=== PATIENT | female | born 1955 | race Caucasian/White ===

== ENCOUNTER → 2016-09-08 | Outpatient (REF) | payer OTHER | LOC: M LAB REF 14:53 | PROVIDERS: ATTEND Physician Assistant Medical | DX: N39.0 Urinary tract infection, site not specified (principal) ==

== ENCOUNTER → 2017-05-13 | Outpatient (REF) | payer OTHER | LOC: M LAB REF 11:34 | PROVIDERS: ATTEND Physician Assistant | DX: R30.0 Dysuria (principal) ==

== ENCOUNTER → 2018-04-21 | Outpatient (REF) | payer OTHER ==
[2018-04-21 14:25] LABS: BASO % 0.7 % (0.0-1.0); EOS # 0.1 10^3/uL (0.0-0.50); EOS % 1.4 % (0.0-3.0); HEMATOCRIT 46.4 % (36.0-47.0); IMMATURE GRANULOCYTE % 0.5 % (0-3.0); LYMPH # 0.8 10^3/uL (1.5-4.5); LYMPH % 13.7 % (24.0-44.0); MEAN CORPUSCULAR HEMOGLOBIN 27.9 pg (27.0-33.0); MEAN CORPUSCULAR HGB CONC 32.3 g/dl (32.0-36.5); MEAN CORPUSCULAR VOLUME 86.4 fl (80.0-96.0); MONO # 0.5 10^3/uL (0.0-0.8); MONO % 7.7 % (0.0-5.0); NEUTROPHILS # 4.4 10^3/uL (1.8-7.7); PLATELET COUNT, AUTOMATED 208 10^3/uL (150-450); RED BLOOD COUNT 5.37 10^6/uL (4.00-5.40); RED CELL DISTRIBUTION WIDTH 14.2 % (11.5-14.5); WHITE BLOOD COUNT 5.8 10^3/uL (4.0-10.0)
[2018-04-21 14:26] LABS: RHEUMATOID FACTOR QUANT < 10.0 IU/ML (<15.0)
[2018-04-21 14:26] LABS: C REACTIVE PROTEIN QUANTITATIV 0.74 MG/DL (0.00-0.30)
[2018-04-21 15:21] LABS: ERYTHROCYTE SEDIMENTATION RATE 3 mm/hr (0-30)
[2018-04-22 14:16] LABS: ANTINUCLEAR ANTIBODIES DIRECT Negative (Negative)
== END ==
LOC: M LABDRAW1 11:08
DX: M25.552 Pain in left hip (principal)
CPT/HCPCS: 86140

== ENCOUNTER 2019-04-11 18:23 | Emergency (ER) | payer OTHER ==
[~2019-04-11] VITALS: Ht 167.6 cm; Wt 78.2 kg
[2019-04-11] MEDS ORDERED: GABA-845 PO (18:32)
[2019-04-11] MEDS ORDERED: VASO20TA11 PO (18:33)
[2019-04-11] MEDS ORDERED: ESTR2TAB4 PO (18:33)
[2019-04-11 19:07] LABS: BASO # 0.1 10^3/uL (0.0-0.2); BASO % 0.9 % (0.0-1.0); EOS # 0.1 10^3/uL (0.0-0.5); EOS % 2.2 % (0.0-3.0); HEMATOCRIT 45.5 % (36.0-47.0); HEMOGLOBIN 14.8 g/dl (12.0-15.5); LYMPH # 1.1 10^3/uL (1.5-5.0); LYMPH % 18.3 % (24.0-44.0); MEAN CORPUSCULAR HEMOGLOBIN 28.2 pg (27.0-33.0); MEAN CORPUSCULAR HGB CONC 32.5 g/dl (32.0-36.5); MEAN CORPUSCULAR VOLUME 86.8 fl (80.0-96.0); MONO # 0.5 10^3/uL (0.0-0.8); MONO % 8.3 % (0.0-5.0); NEUTROPHILS # 4.1 10^3/uL (1.5-8.5); PLATELET COUNT, AUTOMATED 196 10^3/uL (150-450); RED BLOOD COUNT 5.24 10^6/uL (4.00-5.40); WHITE BLOOD COUNT 5.8 10^3/uL (4.0-10.0)
[2019-04-11 19:34] LABS: ALBUMIN 3.9 GM/DL (3.2-5.2); ALT/SGPT 22 U/L (12-78); BILIRUBIN,DIRECT 0.1 MG/DL (0.0-0.2); BILIRUBIN,TOTAL 0.5 MG/DL (0.2-1.0); BLOOD UREA NITROGEN 10 MG/DL (7-18); CALCIUM LEVEL 9.4 MG/DL (8.8-10.2); CARBON DIOXIDE LEVEL 31 MEQ/L (21-32); CHLORIDE LEVEL 105 MEQ/L (98-107); CK-MB VALUE MASS < 1.0 NG/ML (<3.6); CPK CREATINE PHOSPHOKINASE 59 U/L (26-192); CREATININE FOR GFR 0.66 MG/DL (0.55-1.30); GLOMERULAR FILTRATION RATE > 60.0 (>45); GLUCOSE, FASTING 87 MG/DL (70-100); LIPASE 117 U/L (73-393); MB/CK RELATIVE INDEX 1.69 (< OR =4); POTASSIUM SERUM 3.8 MEQ/L (3.5-5.1); SODIUM LEVEL 141 MEQ/L (136-145); TOTAL PROTEIN 7.3 GM/DL (6.4-8.2); TROPONIN I < 0.02 NG/ML (< 0.10)
[2019-04-11] MEDS ORDERED: NITROGLYCERIN 0.4 MG SUBL TABLET SL STA (20:40)
[2019-04-11] MEDS ORDERED: ASPIRIN 81 MG CHEW TABLET PO ONE (20:45)
[2019-04-11 21:42] LABS: CPK CREATINE PHOSPHOKINASE 56 U/L (26-192); MB/CK RELATIVE INDEX 1.79 (< OR =4); TROPONIN I < 0.02 NG/ML (< 0.10)
[2019-04-11 22:40] VITALS: BP 188/92
[2019-04-11] MEDS ORDERED: AMLO5TAB6 PO (22:42)
[2019-04-11] MEDS ORDERED: amLODIPine 5 MG TAB PO ONE (22:45)
[2019-04-11 22:55] VITALS: BP 145/89
--- NOTE | 2019-04-12 08:18 | REP ---
Clinical: Acute chest pain . Comparison: 02/20/2016 . Findings: The mediastinum and cardiac silhouette are stable and within normal limits for portable technique. The lung goff are clear without acute consolidation, effusion, or pneumothorax. Skeletal structures are intact. Impression: No acute cardiopulmonary process appreciated. Electronically Signed by Edgar Luna MD 04/12/2019 08:10 A
--- NOTE | 2019-04-12 19:28 | ECGEPIP ---
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
--- NOTE | 2019-04-12 21:10 | ECGEPIP ---
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 Order Number: [id number] Reading MD: Marla Licea Measurements Intervals [place] Rate: 76 P: 58 GA: 186 QRS: 29 QRSD: 92 T: 37 QT: 371 QTc: 418 Interpretive Statements SINUS RHYTHM WITH OCCASIONAL SUPRAVENTRICULAR PREMATURE COMPLEXES POSSIBLE LEFT ATRIAL ENLARGEMENT SIMILAR TO 18:36 SAME DAY Electronically Signed on 04-12-2019 21:09:58 EST by Marla Licea
== END 2019-04-11 22:57 | disposition home or self-care (01) ==
LOC: M ED 18:23
DX: I10 Essential (primary) hypertension (principal); R07.89 Other chest pain; R06.02 Shortness of breath; F17.210 Nicotine dependence, cigarettes, uncomplicated; Z88.0 Allergy status to penicillin; Z88.1 Allergy status to other antibiotic agents

== ENCOUNTER → 2021-03-08 | Outpatient (CLI) | payer BC ==
[~2021-03-08] MED LIST: AMLO1TAB24 PO; ESTR2TAB4 PO; GABA-283 PO; VASO20TA11 PO
--- NOTE | 2021-03-08 08:32 | REP ---
INDICATION: Urinary retention COMPARISON: None TECHNIQUE: Real time salazar scale ultrasound examination using curved array transducer. FINDINGS: Right kidney measures 10.5 x 5.9 x 4.8 cm and demonstrates extrarenal pelvis along with mild hydronephrosis. Normal reniform shape and parenchymal echotexture noted without nephrolithiasis or obvious cystic/mass lesion. Left kidney measures 11.1 x 5.3 x 4.3 cm and includes 1.4 cm cortical midpole cyst. Normal reniform shape and parenchymal echotexture noted without hydronephrosis, obvious mass or nephrolithiasis. IMPRESSION: 1. Findings suggest mild right hydronephrosis. 2. 1.4 cm simple left cyst. <Electronically signed by Edgar Luna > 03/08/21 [id number]
--- NOTE | 2021-03-08 08:33 | REP ---
INDICATION: Urinary retention COMPARISON: None TECHNIQUE: Real time B-mode ultrasound examination using curved array transducer. FINDINGS: Bladder is normal in appearance without wall thickening or mass lesion. Bilateral ureteral jets are identified. Prevoid bladder measures 8.1 x 9.8 x 6.5 cm (337 cc). Postvoid bladder measures 4.9 x 5.2 x 3.3 cm (55 cc). Postvoid residual: 16.3 % IMPRESSION: 1. Mildly elevated postvoid residual volume. <Electronically signed by Edgar Luna > 03/08/21 [id number]
== END ==
LOC: M RAD 07:38
PROVIDERS: ATTEND Urology
DX: R33.9 Retention of urine, unspecified (principal)

== ENCOUNTER → 2022-10-14 | Outpatient (CLI) | payer MEDICARE ==
[2022-10-14 20:57] LABS: APPEARANCE, URINE HAZY (CLEAR); BACTERIA, URINE AUTO NEGATIVE (NEGATIVE); BILIRUBIN, URINE AUTO NEGATIVE (NEGATIVE); BLOOD, URINE BLOOD NEGATIVE (NEGATIVE); COLOR, URINE YELLOW (YELLOW); GLUCOSE, URINE (UA) AUTO NEGATIVE (NEGATIVE); KETONE, URINE AUTO TRACE mg/dL (NEGATIVE); LEUKOCYTE ESTERASE, URINE AUTO NEGATIVE (NEGATIVE); NITRITE, URINE AUTO NEGATIVE (NEGATIVE); PROTEIN, URINE AUTO 1+ mg/dL (NEGATIVE); RBC, URINE AUTO 2 /HPF (0-3); SPECIFIC GRAVITY URINE AUTO 1.019 (1.002-1.035); SQUAMOUS EPITHELIAL CELL UR AU 1 /HPF (0-6); UROBILINOGEN, URINE AUTO 0.2 mg/dL (0.0-2.0); WBC, URINE AUTO 1 /HPF (0-3)
== END ==
LOC: M LAB 20:26
PROVIDERS: ATTEND Advanced Practice Midwife
DX: R30.0 Dysuria (principal)

== ENCOUNTER → 2024-06-15 | Outpatient (CLI) | payer MEDICARE ==
[~2024-06-15] MED LIST changes: -GABA-283 PO; +GABA-284 PO
[2024-06-15 03:08] LABS: APPEARANCE, URINE CLOUDY (CLEAR); BACTERIA, URINE AUTO 1+ (NEGATIVE); BILIRUBIN, URINE AUTO NEGATIVE (NEGATIVE); BLOOD, URINE BLOOD 2+ (NEGATIVE); COLOR, URINE YELLOW (YELLOW); GLUCOSE, URINE (UA) AUTO NEGATIVE (NEGATIVE); KETONE, URINE AUTO NEGATIVE (NEGATIVE); LEUKOCYTE ESTERASE, URINE AUTO 3+ (NEGATIVE); MUCUS, URINE SMALL (NEGATIVE); NITRITE, URINE AUTO NEGATIVE (NEGATIVE); PROTEIN, URINE AUTO 2+ mg/dL (NEGATIVE); RBC, URINE AUTO 134 /HPF (0-3); SPECIFIC GRAVITY URINE AUTO 1.024 (1.002-1.035); SQUAMOUS EPITHELIAL CELL UR AU 5 /HPF (0-6); TRANSITIONAL EPITHELIAL AUTO <1 /HPF; UROBILINOGEN, URINE AUTO 0.2 mg/dL (0.0-2.0); WBC, URINE AUTO 75 /HPF (0-3)
== END ==
LOC: M LAB 02:35
PROVIDERS: ATTEND Advanced Practice Midwife
DX: R30.0 Dysuria (principal)

== ENCOUNTER 2024-09-05 15:19 | Emergency (ER) | payer MEDICARE ==
[~2024-09-05] VITALS: Ht 167.6 cm; Wt 90.0 kg
[2024-09-05 15:22] VITALS: BP 139/65; TEMP 97.4; O2SAT 98
[2024-09-05] MEDS ORDERED: ACET-897 PO (15:29)
[2024-09-05] MEDS ORDERED: IBUP-1022 PO (15:29)
[2024-09-05] MEDS ORDERED: ATOR40TA75 (15:29)
[2024-09-05] MEDS ORDERED: PRED10TA2 PO (18:26)
== END 2024-09-05 18:31 | disposition home or self-care (01) ==
LOC: M ED 15:19
DX: M16.12 Unilateral primary osteoarthritis, left hip (principal); I10 Essential (primary) hypertension; Z88.0 Allergy status to penicillin; Z88.1 Allergy status to other antibiotic agents; Z88.8 Allergy status to other drugs, medicaments and biological substances; Z79.1 Long term (current) use of non-steroidal anti-inflammatories (NSAID); Z79.52 Long term (current) use of systemic steroids; Z79.899 Other long term (current) drug therapy

== ENCOUNTER → 2024-09-15 | Outpatient (CLI) | payer MEDICARE ==
[~2024-09-15] MED LIST changes: +ACET-897 PO; +ATOR40TA75; +IBUP-1022 PO; +PRED10TA2 PO
== END ==
LOC: M SOG 10:55
PROVIDERS: ATTEND Orthopaedic Surgery
DX: M25.561 Pain in right knee (principal)

== ENCOUNTER → 2024-09-15 | Outpatient (REF) | payer MEDICARE | LOC: M LAB REF 12:41 | PROVIDERS: ATTEND Orthopaedic Surgery | DX: M25.561 Pain in right knee (principal) ==

== ENCOUNTER → 2024-09-15 | Outpatient (CLI) | payer MEDICARE ==
[2024-09-15 23:28] LABS: HEMATOCRIT 43.3 % (36.0-47.0); HEMOGLOBIN 13.9 g/dl (12.0-15.5); MEAN CORPUSCULAR HEMOGLOBIN 28.2 pg (27.0-33.0); MEAN CORPUSCULAR HGB CONC 32.1 g/dl (32.0-36.5); MEAN CORPUSCULAR VOLUME 87.8 fl (80.0-96.0); PLATELET COUNT, AUTOMATED 230 10^3/uL (150-450); RED BLOOD COUNT 4.93 10^6/uL (4.00-5.40); WHITE BLOOD COUNT 19.8 10^3/uL (4.0-10.0)
[2024-09-15 23:38] LABS: INR 0.87; PROTHROMBIN TIME 12.1 SECONDS (12.5-14.5)
[2024-09-15 23:49] LABS: ALBUMIN 3.8 G/DL (3.2-5.2); ALKALINE PHOSPHATASE 75 U/L (35-104); ALT/SGPT 24 U/L (7.0-40); AST/SGOT 13 U/L (<34); BILIRUBIN,TOTAL 0.3 MG/DL (0.3-1.2); BLOOD UREA NITROGEN 25 MG/DL (9-23); C REACTIVE PROTEIN QUANTITATIV < 0.50 MG/DL (<1.0); CALCIUM LEVEL 9.5 MG/DL (8.3-10.6); CARBON DIOXIDE LEVEL 29 MMOL/L (20-31); CHLORIDE LEVEL 107 MMOL/L (98-107); CREATININE FOR GFR 0.79 MG/DL (0.55-1.30); GLOMERULAR FILTRATION RATE 81.4 (>45); GLUCOSE, FASTING 100 MG/DL (74-106); POTASSIUM SERUM 4.4 MMOL/L (3.5-5.1); SODIUM LEVEL 141 MMOL/L (136-145); TOTAL PROTEIN 6.6 G/DL (5.7-8.2)
[2024-09-15 23:51] LABS: TOTAL 25(OH) VITAMIN D 23.5 NG/ML (20.0-100.0)
[2024-09-15 23:59] LABS: HEMOGLOBIN A1c 5.1 % (4.0-6.0)
[2024-09-16 00:09] LABS: ANISOCYTOSIS 1+; ATYPICAL LYMPH 10 % (0-5); BASOPHILS 1 % (0-1); EOSINOPHILS 1 % (0-3); LYMPHOCYTES 40 % (16-44); MONOCYTES 10 % (0-5); NEUTROPHILS 38 % (28-66); PLATELET ESTIMATE NORMAL (NORMAL)
[2024-09-16 00:28] LABS: ERYTHROCYTE SEDIMENTATION RATE 7 mm/hr (0-30)
== END ==
LOC: M LAB 22:28
PROVIDERS: ATTEND Orthopaedic Surgery
DX: M16.11 Unilateral primary osteoarthritis, right hip (principal); Z79.01 Long term (current) use of anticoagulants

== ENCOUNTER → 2024-11-30 | Outpatient (CLI) | payer MEDICARE ==
[~2024-11-30] MED LIST changes: +OMEP40CA5
== END ==
LOC: M RAD 16:29
PROVIDERS: ATTEND Orthopaedic Surgery
DX: M16.11 Unilateral primary osteoarthritis, right hip (principal)

== ENCOUNTER 2024-12-13 10:17 | Observation (INO) | payer MEDICARE ==
[~2024-12-13] VITALS: Ht 167.6 cm; Wt 81.0 kg
[~2024-12-13 10:17] MED LIST changes: -ATOR40TA75; +ATOR40TA75 PO; +LIDOCAINE 2% 100 MG/5 ML SDV (FOR ANES.) As Ordered ONE; -OMEP40CA5; +OMEP40CA5 PO; +ONDANSETRON 4MG 2ML VIAL As Ordered ONE; +ROCURONIUM BROMIDE 50MG/5ML VIAL As Ordered ONE; +SUGAMMADEX SODIUM 500 MG/5 ML VIAL As Ordered ONE; +dexAMETHasone 4 MG/ML 1 ML VIAL As Ordered ONE; +dexmedeTOMIDine (4 MCG/ML) 200 MCG/50 ML BTL As Ordered ONE
[2024-12-13] MEDS: LR 1,000 ML IV SCH ×2 (10:35→15:15)
[2024-12-13] MEDS ORDERED: MIDAZOLAM INJ 2 MG/2 ML VIAL As Ordered ONE (11:46)
[2024-12-13] MEDS: ceFAZolin SODIUM 2 GM in DEXTROSE 5% (D5W) ADV/MINI-BAG 50 ML IV ONE (12:28)
[2024-12-13] MEDS: TRANEXAMIC ACID 100 MG/ML 10ML VIAL As Ordered ONE (12:51)
[2024-12-13] MEDS ORDERED: ACETAMINOPHEN 1000MG/100ML IV BAG As Ordered ONE (12:54)
[2024-12-13] MEDS: VANCOMYCIN 1000MG/20ML VIAL As Ordered ONE (14:35)
[2024-12-13] MEDS: REK 50ML SYRINGE IA ONE (15:03)
[2024-12-13] MEDS ORDERED: SENNA 8.6 MG TAB PO PRN (15:10)
[2024-12-13] MEDS ORDERED: ONDANSETRON 4MG 2ML VIAL IV PRN (15:10)
[2024-12-13] MEDS ORDERED: HYDROMORPHONE HCL 0.5 MG/0.5 ML SYRINGE IV PRN (15:15)
[2024-12-13] MEDS: ONDANSETRON 4MG 2ML VIAL IV PRN (15:43)
[2024-12-13] MEDS: HYDROMORPHONE HCL 0.5 MG/0.5 ML SYRINGE IV PRN (16:07)
[2024-12-13] MEDS: KETOROLAC 30 MG/ML 1 ML VIAL IV ONE (16:25)
[2024-12-13 17:00] VITALS: BP 101/55; TEMP 96.8; O2SAT 94
[2024-12-13] MEDS ORDERED: GABA-1171 PO (17:26)
[2024-12-13] MEDS ORDERED: HOME MED LIST COMPLETE! XX SCH (17:30)
[2024-12-13 18:00] VITALS: BP 107/60; TEMP 97.1; O2SAT 95
[2024-12-13] MEDS: ACETAMINOPHEN 325 MG TAB PO SCH (18:10)
[2024-12-13 19:00] VITALS: BP 101/55; TEMP 97.3; O2SAT 94
[2024-12-13 19:42] VITALS: BP 99/55; TEMP 97.3; O2SAT 94
[2024-12-13] MEDS: ASPIRIN 81 MG ENTERIC TABLET PO SCH (21:01)
[2024-12-13] MEDS: DOCUSATE SODIUM 100 MG CAPSULE PO SCH (21:01)
[2024-12-13] MEDS: NAPROXEN 250 MG TAB PO SCH (21:02)
[2024-12-13] MEDS: GABAPENTIN 100 MG CAP PO SCH (21:02)
[2024-12-13] MEDS: ceFAZolin SODIUM 2 GM in DEXTROSE 5% (D5W) ADV/MINI-BAG 50 ML IV SCH (21:02)
[2024-12-13 23:59] VITALS: BP 109/67; TEMP 97.3; O2SAT 94
[2024-12-14 03:54] VITALS: BP 97/56; TEMP 97; O2SAT 91
[2024-12-14 07:06] LABS: PLATELET COUNT, AUTOMATED 165 10^3/uL (150-450)
[2024-12-14 07:39] LABS: ALT/SGPT 26.0 U/L (7.0-40); AST/SGOT 54.0 U/L (<34); CALCIUM LEVEL 8.1 MG/DL (8.3-10.6); CARBON DIOXIDE LEVEL 27.0 MMOL/L (20-31); CHLORIDE LEVEL 103.0 MMOL/L (98-107); CREATININE FOR GFR 0.84 MG/DL (0.55-1.30); GLOMERULAR FILTRATION RATE 75.7 (>45); POTASSIUM SERUM 4.4 MMOL/L (3.5-5.1); SODIUM LEVEL 141.0 MMOL/L (136-145)
[2024-12-14] MEDS: ATORVASTATIN 20 MG TAB PO SCH (08:29)
[2024-12-14 08:30] VITALS: BP 122/65
[2024-12-14] MEDS: amLODIPine 5 MG TAB PO SCH (08:30)
[2024-12-14] MEDS: ASCORBIC ACID 500 MG TAB PO SCH (08:30)
[2024-12-14] MEDS: FERROUS SULFATE 325 MG TAB PO SCH (08:30)
[2024-12-14] MEDS: ENALAPRIL MALEATE 10 MG TAB PO SCH (08:39)
[2024-12-14] MEDS ORDERED: CELE100C PO (08:51)
[2024-12-14] MEDS ORDERED: ENDO10TA8 PO (08:51)
[2024-12-14] MEDS ORDERED: ASPI81TAEC PO (08:51)
[2024-12-14] MEDS ORDERED: FERR1TAB8 PO (08:51)
[2024-12-14 12:00] VITALS: BP 98/66; TEMP 97.4; O2SAT 95
[2024-12-14] MEDS ORDERED: CLIN150C17 PO (13:13)
== END 2024-12-14 14:30 | disposition home or self-care (01) ==
LOC: M SDC 10:17 → M RR INP 10:18 → M MS5PR 17:10
PROVIDERS: ADMIT Orthopaedic Surgery; ATTEND Orthopaedic Surgery
DX: M16.11 Unilateral primary osteoarthritis, right hip (principal); I10 Essential (primary) hypertension; K21.9 Gastro-esophageal reflux disease without esophagitis; Z88.1 Allergy status to other antibiotic agents; Z88.0 Allergy status to penicillin; Z91.040 Latex allergy status; Z88.7 Allergy status to serum and vaccine; Z79.899 Other long term (current) drug therapy; Z87.891 Personal history of nicotine dependence
CPT/HCPCS: 27130; 36415; 72170; 80053; 85027; 88300; 96374; 96376; 97116; 97161; 97165; 97530; C1776; G0378; J0131; J0169; J0690; J1100; J1171; J1885; J2250; J2405; J2795; J3010; J3373; S2900

== ENCOUNTER → 2024-12-21 | Outpatient (CLI) | payer MEDICARE ==
[~2024-12-21] MED LIST changes: +ASPI81TAEC PO; +CELE100C PO; +CLIN150C17 PO; +ENDO10TA8 PO; +FERR1TAB8 PO; +GABA-1171 PO; -LIDOCAINE 2% 100 MG/5 ML SDV (FOR ANES.) As Ordered ONE; -ONDANSETRON 4MG 2ML VIAL As Ordered ONE; -ROCURONIUM BROMIDE 50MG/5ML VIAL As Ordered ONE; -SUGAMMADEX SODIUM 500 MG/5 ML VIAL As Ordered ONE; -dexAMETHasone 4 MG/ML 1 ML VIAL As Ordered ONE; -dexmedeTOMIDine (4 MCG/ML) 200 MCG/50 ML BTL As Ordered ONE
== END ==
LOC: M SOG 07:00
PROVIDERS: ATTEND Orthopaedic Surgery
DX: Z47.1 Aftercare following joint replacement surgery (principal); Z96.641 Presence of right artificial hip joint

== ENCOUNTER → 2024-12-21 | Outpatient (CLI) | payer MEDICARE | LOC: M RAD 11:45 | PROVIDERS: ATTEND Orthopaedic Surgery | DX: Z47.1 Aftercare following joint replacement surgery (principal); M79.89 Other specified soft tissue disorders ==

== ENCOUNTER → 2024-12-28 | Outpatient (CLI) | payer MEDICARE ==
[2024-12-28 12:08] LABS: PLATELET COUNT, AUTOMATED 311 10^3/uL (150-450)
[2024-12-28 12:31] LABS: C REACTIVE PROTEIN QUANTITATIV 0.95 MG/DL (<1.0)
[2024-12-28 12:33] LABS: ATYPICAL LYMPH 4 % (0-5); EOSINOPHILS 4 % (0-3); LYMPHOCYTES 31 % (16-44); MONOCYTES 7 % (0-5); NEUTROPHILS 53 % (28-66)
[2024-12-28 12:34] LABS: ALT/SGPT 18.0 U/L (7.0-40); AST/SGOT 20.0 U/L (<34); CALCIUM LEVEL 9.7 MG/DL (8.3-10.6); CARBON DIOXIDE LEVEL 30.0 MMOL/L (20-31); CHLORIDE LEVEL 102.0 MMOL/L (98-107); CREATININE FOR GFR 0.91 MG/DL (0.55-1.30); GLOMERULAR FILTRATION RATE 68.7 (>45); PLATELET ESTIMATE NORMAL (NORMAL); POTASSIUM SERUM 4.7 MMOL/L (3.5-5.1); SODIUM LEVEL 141.0 MMOL/L (136-145)
== END ==
LOC: M LAB 10:26
PROVIDERS: ATTEND Orthopaedic Surgery
DX: Z47.1 Aftercare following joint replacement surgery (principal)

== ENCOUNTER 2025-01-13 09:13 | Outpatient (RCR) | payer MEDICARE ==
[~2025-01-13 09:13] MED LIST changes: -IBUP-1022 PO; +IBUP600T42 PO
== END 2025-01-16 ==
LOC: M PT 09:13
PROVIDERS: ATTEND Orthopaedic Surgery
DX: M16.11 Unilateral primary osteoarthritis, right hip (principal)

== ENCOUNTER → 2025-02-21 | Outpatient (CLI) | payer MEDICARE | LOC: M SOG 07:23 | PROVIDERS: ATTEND Orthopaedic Surgery | DX: Z96.641 Presence of right artificial hip joint (principal); Z47.1 Aftercare following joint replacement surgery ==

== ENCOUNTER → 2025-03-11 | Outpatient (CLI) | payer MEDICARE ==
[2025-03-11 13:08] LABS: PLATELET COUNT, AUTOMATED 183 10^3/uL (150-450)
[2025-03-11 15:22] LABS: ATYPICAL LYMPH 3 % (0-5); BASOPHILS 1 % (0-1); EOSINOPHILS 3 % (0-3); LYMPHOCYTES 34 % (16-44); MONOCYTES 3 % (0-5); NEUTROPHILS 56 % (28-66)
[2025-03-11 15:24] LABS: PLATELET ESTIMATE NORMAL (NORMAL)
== END ==
LOC: M LAB 12:03
PROVIDERS: ATTEND Orthopaedic Surgery
DX: Z96.641 Presence of right artificial hip joint (principal)

== ENCOUNTER → 2025-03-11 | Outpatient (CLI) | payer MEDICARE | LOC: M SOG 11:15 | PROVIDERS: ATTEND Orthopaedic Surgery | DX: Z96.641 Presence of right artificial hip joint (principal); Z47.1 Aftercare following joint replacement surgery ==

== ENCOUNTER → 2025-03-17 | Outpatient (CLI) | payer MEDICARE | LOC: M RAD 07:50 | PROVIDERS: ATTEND Orthopaedic Surgery | DX: Z96.641 Presence of right artificial hip joint (principal) ==